=== PATIENT | female | born 1990 | race Two or more races ===

== ENCOUNTER 2022-06-13 17:30 | Emergency (ER) | payer MEDICARE, MEDICAID, OTHER ==
[~2022-06-13] VITALS: Ht 172.7 cm; Wt 75.9 kg
[~2022-06-13 17:30] MED LIST: ALBU18; LEVO25TA6
[2022-06-13 20:00] VITALS: BP 96/50
== END 2022-06-14 00:36 | disposition home or self-care (01) ==
LOC: ER 17:30
DX: S23.3XXA Sprain of ligaments of thoracic spine, initial encounter (principal); M25.511 Pain in right shoulder; E78.5 Hyperlipidemia, unspecified; V89.2XXA Person injured in unspecified motor-vehicle accident, traffic, initial encounter; Y93.89 Activity, other specified; Y92.89 Other specified places as the place of occurrence of the external cause; Y99.8 Other external cause status